=== PATIENT | female | born 1975 | race Native Hawaiian/Other Pacific Islander ===

== ENCOUNTER 2019-06-30 18:41 | Emergency (ER) | payer OTHER ==
[~2019-06-30] VITALS: Ht 152.4 cm; Wt 113.4 kg
[2019-06-30] MEDS ORDERED: LISITAB PO (19:10)
[2019-06-30] MEDS ORDERED: BUSPIRONE5 MG PO (19:10)
[2019-06-30] MEDS ORDERED: MONTELUKAST SOD10 MG PO (19:10)
[2019-06-30] MEDS ORDERED: DULO60CA2 PO (19:11)
[2019-06-30] MEDS ORDERED: OMEPRAZOLE DR20 MG PO (19:11)
[2019-06-30] MEDS ORDERED: DULO30CA PO (19:11)
[2019-06-30] MEDS ORDERED: MOBIC15 MG PO (19:11)
[2019-06-30] MEDS ORDERED: LUBI24CA PO (19:12)
[2019-06-30] MEDS ORDERED: LEVO0.2T35 PO (19:12)
[2019-06-30] MEDS ORDERED: BUDE1AER5 INH (19:20)
[2019-06-30 19:49] LABS: PLATELET COUNT 296 K/uL (152-353)
[2019-06-30 20:10] LABS: POTASSIUM 4.4 mmol/L (3.6-5.2)
[2019-07-01 01:28] VITALS: BP 137/78; TEMP 98.1
== END 2019-07-01 01:32 | disposition home or self-care (01) ==
LOC: ED 18:41
PROVIDERS: Emergency Medicine
DX: E11.65 Type 2 diabetes mellitus with hyperglycemia (principal)
CPT/HCPCS: 36415; 80053; 81000; 82947; 82962; 85027; 96360; 96374; 99284; J1815